=== PATIENT | female | born 1945 | race Caucasian/White ===

== ENCOUNTER → 2017-02-21 | Outpatient (CLI) | payer OTHER ==
[~2017-02-21] MED LIST: CARV25TA2 PO; CLC100 PO; INSU1.2I SQ; LEVO137T3 PO; METF-384 PO; NRV5 PO; ONDA4TAB10 SL; OXYC7.5T65 PO; TRAM-10 PO
== END | disposition home or self-care (01) ==
LOC: C.LABSPEC 17:24
PROVIDERS: ATTEND Urology
DX: N28.89 Other specified disorders of kidney and ureter (principal)

== ENCOUNTER 2017-03-04 04:59 | Inpatient (IN) | payer OTHER ==
[2017-02-26 09:37] VITALS: BMI 32.0
--- NOTE | 2017-02-26 10:27 | PAT Medication Instructions ---
Service Date Feb 26, 2017. Current Home Medication List Carvedilol (Coreg), 25 MG PO BID Insulin Glargine (Toujeo Solostar), 44 UNITS SQ BID Levothyroxine Sodium (Levothyroxine Sodium), 1 TAB PO QAM Metformin Hcl (Glucophage), 1,000 MG PO BID Tramadol (Ultram), 50 MG PO Q4H PRN for Pain Medication Instructions For Your Scheduled Surgery - Hold the following medications 48 hours prior to surgery: Metformin Hcl (Glucophage), 1,000 MG PO BID - Take the following medications the morning of surgery with a sip of water: Tramadol (Ultram), 50 MG PO Q4H PRN for Pain (okay to take up to 4 hours prior to surgery if needed) Levothyroxine Sodium (Levothyroxine Sodium), 1 TAB PO QAM Carvedilol (Coreg), 25 MG PO BID - Take the following medications as scheduled the night before surgery: Tramadol (Ultram), 50 MG PO Q4H PRN for Pain (if needed) Carvedilol (Coreg), 25 MG PO BID Insulin Glargine (Toujeo Solostar), 44 UNITS SQ BID - For Insulin Dependent Diabetic patients: Test blood sugar A.M. of surgery. - If Blood sugar greater than 150, take half of your regular dose of: Insulin Glargine (Toujeo Solostar), take 22 units - If Blood sugar less than 150, do not take any: Insulin Glargine ( Toujeo Solostar) If you have any questions please call us at [phone] or [phone] or [phone]
--- NOTE | 2017-02-26 11:06 | DIAGNOSTIC IMAGING REPORT ---
CHEST PREADMISSION(PA/LAT) CLINICAL HISTORY: Preoperative chest COMPARISON STUDY: 02/26/2017 FINDINGS: The cardiac and mediastinal contours are normal. There is no evidence of focal pulmonary consolidation. There is no evidence of failure. No pleural effusions are visualized.[ There is left basilar atelectasis/scarring. IMPRESSION: No active disease in the chest. Electronically signed by: Luoie Pan M.D. 02/26/2017 11:04 AM Dictated Date/Time: 02/26/2017 11:04 AM
[2017-02-26 11:13] LABS: BASO % 0.4 %; BASO ABS # 0.03 K/uL (0-0.2); COMPLETE YES; EOS % 2.1 %; HEMATOCRIT 41.6 % (37-47); IG% 0.5 %; LYMPH % 30.7 %; LYMPH ABS # 2.33 K/uL (1.2-3.4); MEAN CELL VOLUME 93.7 fL (80-100); MEAN CORPUSCULAR HEMOGLOBIN 31.3 pg (25-34); MEAN CORPUSCULAR HGB CONC 33.4 g/dl (32-36); MEAN PLATELET VOLUME 9.8 fL (7.4-10.4); MONO % 4.9 %; NEUT % 61.4 %; PLATELET COUNT 343 K/uL (130-400); RED BLOOD COUNT 4.44 M/uL (4.2-5.4); WHITE BLOOD COUNT 7.58 K/uL (4.8-10.8)
[2017-02-26 13:08] LABS: ALT/SGPT 25 U/L (12-78); BLOOD UREA NITROGEN 10 mg/dl (7-18); BUN/CREATININE RATIO 11.3 (10-20); CARBON DIOXIDE 29 mmol/L (21-32); CHLORIDE 102 mmol/L (98-107); CREATININE 0.85 mg/dl (0.60-1.20); GLUCOSE 208 mg/dl (70-99); POTASSIUM 4.3 mmol/L (3.5-5.1); SODIUM 137 mmol/L (136-145)
[2017-02-26 13:12] LABS: ALKALINE PHOSPHATASE 91 U/L (45-117); AST/SGOT 19 U/L (15-37)
[~2017-03-04] VITALS: Ht 167.6 cm; Wt 89.7 kg
[2017-03-04] VITALS (14 sets, daily range): BP systolic 138–179; BP diastolic 70–91; PULSE 69–100; TEMP 36.5–37.1; O2SAT 93–98; BMI 32.0
[~2017-03-04 04:59] MED LIST changes: -CLC100 PO; -NRV5 PO; -ONDA4TAB10 SL; -OXYC7.5T65 PO
[2017-03-04] MEDS ORDERED: CEFAZOLIN 3000MG IV PUSH 15 ML IV SCH (06:00)
[2017-03-04] MEDS ORDERED: LACTATED RINGER'S 1000ML 1,000 ML IV SCH (06:00)
[2017-03-04] MEDS ORDERED: MIDAZOLAM HCL 1 MG/ML 2ML VIAL ONE (06:58)
[2017-03-04] MEDS ORDERED: NEOSTIGMINE METHYLSULFATE 5 MG/5 ML SYR ONE (06:58)
[2017-03-04] MEDS ORDERED: GLYCOPYRROLATE INJ 0.2 MG/ML VIAL ONE (06:58)
[2017-03-04] MEDS ORDERED: EpHEDrine SULFATE INJ 50 MG/ML AMP ONE (06:58)
[2017-03-04] MEDS ORDERED: SUCCINYLCHOLINE CHLORIDE 20 MG/ML 10 ML VIAL IV ONE (06:58)
[2017-03-04] MEDS ORDERED: PHENYLEPHRINE HCL INJ 10 MG/ML VIAL ONE (06:58)
[2017-03-04] MEDS ORDERED: FENTANYL CITRATE INJ 50 MCG/1 ML 2 ML VIAL ONE ×2 (06:58)
[2017-03-04] MEDS ORDERED: PROPOFOL IV EMULSION 10 MG/ML 20 ML VIAL IV ONE (06:58)
[2017-03-04] MEDS ORDERED: LIDOCAINE HCL 2% 2 ML VIAL (20MG/ML) ONE (06:58)
[2017-03-04] MEDS ORDERED: DEXAMETHASONE SOD INJ 4 MG/ML VIAL ONE (06:58)
[2017-03-04] MEDS ORDERED: ONDANSETRON INJ 2 MG/ML 2 ML VIAL ONE ×2 (06:58→09:25)
--- NOTE | 2017-03-04 07:00 | History & Physical Bridge Note ---
H&P Re-Evaluation Bridge Note: I have examined the patient, reviewed the History & Physical and in the interval since the performance of the History & Physical I have noted the following changes of clinical significance: No changes noted
[2017-03-04] MEDS ORDERED: MoRPHine SULFATE 4 MG/ML 1 ML CARP\\VIAL IV PRN (07:15)
[2017-03-04] MEDS ORDERED: MEPERIDINE HCL 25 MG/ML CARP IV PRN (07:15)
[2017-03-04] MEDS ORDERED: ATROPINE SULFATE 0.1 MG/ML 5ML SYR IV PRN (07:15)
[2017-03-04] MEDS ORDERED: NALOXONE HCL 0.4 MG/1 ML VIAL/CARP IV PRN (07:15)
[2017-03-04] MEDS ORDERED: FLUMAZENIL 0.1 MG/1 ML 10 ML VIAL IV PRN (07:15)
[2017-03-04] MEDS ORDERED: PHENYLEPHRINE 100MCG/ML 5ML SYR IV PRN (07:15)
[2017-03-04] MEDS ORDERED: EpHEDrine SULFATE INJ 50 MG/ML AMP IV PRN (07:15)
[2017-03-04] MEDS ORDERED: ONDANSETRON INJ 2 MG/ML 2 ML VIAL IV PRN (07:15)
[2017-03-04] MEDS ORDERED: LABETALOL HCL IV 5 MG/ML 20ML IV PRN (07:15)
[2017-03-04] MEDS ORDERED: BUPIVACAINE 0.5 % 5 MG/1 ML MPF 30ML VIAL ONE (07:25)
[2017-03-04] MEDS ORDERED: HYDROmorphone INJ 2 MG/ML SYR/VIAL ONE (08:16)
[2017-03-04] MEDS ORDERED: ROCURONIUM BROMIDE 10 MG/ML 5 ML VIAL IV ONE (08:42)
[2017-03-04] MEDS ORDERED: LABETALOL HCL IV 5 MG/ML 20ML IV ONE (09:25)
[2017-03-04] MEDS ORDERED: FLOSEAL HEMOSTATIC MATRIX 10ML TOP ONE (09:29)
[2017-03-04] MEDS ORDERED: TISSEEL FIBRIN SEALANT 10ML TOP ONE (09:29)
[2017-03-04] MEDS ORDERED: ACETAMINOPHEN 500 MG TAB PO SCH (09:45)
[2017-03-04] MEDS ORDERED: HYDROmorphone INJ 1 MG/ML SYR IV PRN (09:45)
[2017-03-04] MEDS ORDERED: OXYCODONE/ACETAMINOPHEN 7.5-325 TAB PO PRN (09:45)
[2017-03-04] MEDS ORDERED: BACITRACIN OINT 15 GM TUBE ONE (09:49)
[2017-03-04] MEDS ORDERED: HydrALAZINE HCL 20 MG/ML VIAL ONE (10:10)
--- NOTE | 2017-03-04 10:10 | [facility] Post Operative Brief Note ---
Immediate Operative Summary Operative Date Mar 04, 2017. Pre-Operative Diagnosis Right Renal Masses x 2 Post-Operative Diagnosis Same as pre-operative Procedure(s) Performed Right Radical Laparoscopic Hand-Assisted Nephrectomy Surgeon Dr. Michael Alaniz Ornament Maker Hand Surgeon(s) NELA Salmon Estimated Blood Loss 100 ml Findings Duplicated R renal vasculature, excellent hemostasis after completion of case. Fluids (cc crystalloids) 1800 cc Specimens Specimen A: Right Kidney B: Right hilar tissue Drains Liao to gravity Anesthesia GAET + local Complication(s) None Disposition Recovery Room / PACU
[2017-03-04] MEDS: HYDROmorphone INJ 1 MG/ML SYR IV PRN ×2 (10:19→10:28)
[2017-03-04 10:24] LABS: MEAN CORPUSCULAR HEMOGLOBIN 31.4 pg (25-34); MEAN PLATELET VOLUME 9.3 fL (7.4-10.4); PLATELET COUNT 300 K/uL (130-400); RED BLOOD COUNT 4.36 M/uL (4.2-5.4); WHITE BLOOD COUNT 15.88 K/uL (4.8-10.8)
--- NOTE | 2017-03-04 10:33 | [facility] Operative Report ---
Operative Report Operative Date Mar 04, 2017. Pre-Operative Diagnosis Right Renal Masses x 2 Post-Operative Diagnosis Same as pre-operative Procedure(s) Performed Right Radical Laparoscopic Hand-Assisted Nephrectomy Surgeon Dr. Michael Alaniz Special Education Supervisor Surgeon(s) NELA Salmon Estimated Blood Loss 100 ml Findings Duplicate R renal vasculature, excellent hemostasis, majority of adrenal left in situ Fluids 1800 cc Specimens Specimen A: Right Kidney B: Right hilar tissue Drains Liao to gravity Anesthesia GAET + local Complication(s) None Disposition Recovery Room / PACU Indications Patient is a 71-year-old female but seen as an outpatient for history of right renal masses 2, both suspicious for renal cell carcinoma since the spring. On further observation and repeat imaging with MRI these confirmed to be suspicious for malignancy. She is referred for evaluation and discussion of her options. Seen the intraphytic location of her upper pole right renal mass, the presence of 2 separate renal masses in the upper pole and the presence of a duplicated collecting system as well as a normal creatinine and contralateral kidney decision was made to proceed with a right radical hand- assisted laparoscopic nephrectomy as opposed to attempting nephron sparing surgery. Please see H&P for further discussion. Preoperative consent reviewed with the patient and daughter, preoperative imaging reviewed and SCDs used for DVT prophylaxis as well as intravenous antibiotics for antibiotic prophylaxis. Description of Procedure Patient was properly identified and brought into the operative suite after identification of appropriate consent of the chart. General anesthesia with endotracheal intubation was initiated and the patient was prepped and draped in the standard fashion for this procedure, that is in a gentle right flank up position with all pressure points carefully padded and flexion of the table. Arm was placed within an arm pittman and two Kelli huggers were used for temperature control. All port sites were anesthetized with local prior to incision. A Castaneda incision was made of the right lower quadrant superior lateral to the patient's previous somewhat poorly healed appendectomy incision. This was brought down through the generous subcutaneous tissue to the fascia of the external oblique. Abdomen sharply entered under direct visualization using Metzenbaum scissors with no evidence of injury to the bowel. Incision was expanded over the surgeon's finger and some medial attachments of the omentum to the anterior abdominal wall were divided. Hand port was placed and abdomen was insufflated to 15 mmHg. The right sided inferior epigastric was ligated due to bleeding at the level of the rectus. Laparoscopy was performed demonstrating a clear surgical field with expected normal anatomy in the right upper quadrant. 2 12 mm ports were placed in the midclavicular line onto the surgeon's hand. Harmonic scalpel was used to drop the colon along the white line of Toldt the patient's right-hand side. Liver was noted to be sufficiently removed from the kidney to required no significant mobilization. The iliac vessels, IVC and duodenum were identified without difficulty. The lateral aspect of the IVC was used as a plane of dissection up toward the renal hilum over the psoas musculature. Dissection was carried out until the lower of the 2 renal arteries was appreciated. This was divided using a vascular stapler without difficulty. Renal vein was then noted as was the cephalad renal artery. These were circumscribed and also divided. The adrenal gland was divided using a staple load with the majority being left in situ and a rim being left over the kidney. No evidence of direct involvement of the adrenal gland from the patient's tumor was noted. Lateral attachments of the kidney were taken as were the posterior and cephalad attachments using the Harmonic scalpel until the kidney was free save for the inferior attachments at the level of the ureter. These were divided with a separate stapler load with excellent hemostasis. Kidney was delivered from the abdomen and sent for pathologic analysis. Attention was again turned to the retroperitoneum were excellent hemostasis was appreciated. Some excess fatty/lymphatic tissue at the level of the hilum was noted and divided using clips and the Harmonic scalpel as necessary. This is sent separately as right renal hilar tissue for pathologic analysis. After this was complete excellent hemostasis was again appreciated. Tisseel tissue sealant was placed over the course of the ureter as well as over the vessels and adrenal bed. Ports were removed as was the GelPort and excess carbon dioxide gas was removed and the abdomen. Flexion was removed from the table. 12 mm ports were closed using interrupted 0 Vicryl sutures on a UR 6 needle. Hand port was closed in 2 layers using 0 Vicryl and # [address] needle. Subcutaneous tissue was closed using 3-0 Vicryl and 4- 0 Monocryl was used at the level of the skin followed by Dermabond dressings. Anesthesia was reversed patient was transferred to the recovery room in stable condition. Follow-up care: Patient will be discharged to the floor after recovery for standard postoperative care. I attest to the content of the Intraoperative Record and any orders documented therein. Any exceptions are noted below.
--- NOTE | 2017-03-04 10:40 | Anesthesiology Progress Note ---
Anesthesia Post Op Note Date & Time Mar 04, 2017 at 10:40 Vital Signs Pain Intensity: 2 Vital Signs Past 12 Hours Date Time Temp Pulse Resp B/P (MAP) Pulse Ox O2 Delivery O2 Flow Rate FiO2 03/04/17 10:04 36.3 62 16 212/95 100 Oxymask 10 03/04/17 05:40 36.6 71 20 176/88 96 Room Air Notes Mental Status: alert / awake / arousable, participated in evaluation Pt Amnestic to Procedure: Yes Nausea / Vomiting: adequately controlled Pain: adequately controlled Airway Patency, RR, SpO2: stable & adequate BP & HR: stable & adequate, see Notes Hydration State: stable & adequate Anesthetic Complications: no major complications apparent The patient did well. She was treated with hydralazine in the PACU and is now normotensive.
[2017-03-04 10:44] LABS: BUN/CREATININE RATIO 10.4 (10-20); CALCIUM 9.5 mg/dl (8.5-10.1); CREATININE 0.88 mg/dl (0.60-1.20); POTASSIUM 3.7 mmol/L (3.5-5.1)
[2017-03-04] MEDS ORDERED: NURSING VERBAL MED ORDER ONE (10:45)
[2017-03-04 10:56] LABS: MEAN CORPUSCULAR HGB CONC 33.4 g/dl (32-36)
[2017-03-04] MEDS ORDERED: GLUCOSE 10 TABS/TUBE PO PRN (12:00)
[2017-03-04] MEDS ORDERED: ACETAMINOPHEN IV 650 MG in EMPTY BAG 0 ML IV ONE (12:00)
[2017-03-04] MEDS ORDERED: GLUCOSE 40% GEL 15 GM TUBE PO PRN (12:00)
[2017-03-04] MEDS ORDERED: GLUCAGON FOR INJ 1 MG VIAL SQ PRN (12:00)
[2017-03-04] MEDS ORDERED: DEXTROSE 50% 50 ML SYR IV PRN (12:00)
[2017-03-04] MEDS ORDERED: PHARMACY GLYCEMIC MGMT CONSULT PRN (12:11)
[2017-03-04] MEDS: INSULIN ASPART 100 UNITS/ML 3 ML PEN SC SCH ×3 (13:17→21:24)
[2017-03-04] MEDS ORDERED: INSULIN GLARGINE SOLOSTAR 100 UNITS/ML 3 ML PEN SC ONE (13:45)
--- NOTE | 2017-03-04 13:45 | Pharmacy Progress Note ---
Glycemic Control Intl Consult Date of Service Mar 04, 2017. Scope Glycemic Pharmacist consulted by Joshua LAWS on 03/04/17 for glycemic control and to write orders per [facility] inpatient glycemic control protocol Objective Weight (Kilograms): 89.700 Accuchecks BSG (last 24hrs): Test 03/04/17 05:58 03/04/17 10:06 03/04/17 10:12 03/04/17 11:51 Bedside Glucose 90 mg/dl (70-90) 115 mg/dl (70-90) 183 mg/dl (70-90) Random Glucose 121 mg/dl (70-99) Laboratory Data (last 24hrs) Test 03/04/17 10:12 Anion Gap 7.0 mmol/L BUN/Creatinine Ratio 10.4 Blood Urea Nitrogen 9 mg/dl Creatinine 0.88 mg/dl Potassium Level 3.7 mmol/L Sodium Level 139 mmol/L White Blood Count 15.88 K/uL Recent Pertinent Medications Outpatient Anti-diabetic Regimen: * Toujeo {insulin glargine U-300} 44 units SQ BID * Metformin 1,000 mg PO BIDM Risk Factors for Insulin Resistance: * Steroids * Recent Surgery * Diet Assessment & Plan ASSESSMENT: * 71yo T2DM female with unknown degree of outpatient control. No A1c listed in chart. Will order per protocol for tomorrow with AM labs * Pt is maintained on metformin + basal insulin {Toujeo, insulin glargine U-300} * Toujeo is a non-stock/non-formulary medication. Protocol for pharmacy to convert ordered doses of Toujeo to Lantus on a 1:1 unit conversion, except for the initial first dose of Lantus. The recommended initial Lantus dose should be 80% of the ordered Toujeo dose that is being converted on admission. All subsequent doses will be 1:1 dosing conversion. * Pt did not take her insulin prior to surgery this morning. * Will make up 1/2 of missed dose this morning and then resume outpatient dosing this evening * Weight based/high insulin resistance/stress CF/CR PLAN FOR INPATIENT GLYCEMIC CONTROL: * Oral Agents * Holding outpatient oral diabetes medications * Resume metformin POD #1 after renal function and PO intake assessed * Basal insulin * Lantus 22 units SQ x 1 dose NOW, then resume outpatient dosing of 44 units SQ BID * Bolus insulin * NovoLog per scale ACHS or Q6hrs while NPO * Goal Range: Low 110 mg/dL - High 140 mg/dL * Correction Factor: 20 mg/dL/unit * Nutritional / Prandial insulin per carb ratio of 1 unit per 6 grams CHO consumed * Please note that the plan above was derived based on current level of insulin resistance and hospital stress. These recommendations are appropriate for inpatient admission only. Plan of care upon discharge will need to be reassessed to avoid potential outpatient hypo/hyperglycemia. Thank you.
[2017-03-04] MEDS: CEFAZOLIN IV 2,000 MG in SYRINGE 0 ML IV SCH ×2 (15:49→23:36)
--- NOTE | 2017-03-04 16:25 | Progress Note ---
Progress Note Date of Service Mar 04, 2017. Progress Note PM rounds Patient resting comfortably in bed, somnolent, denies pain, nikole sips of clears, no emesis. NAD Arousable, conversant. S1S2 Good respiratory excursion Soft, obese, mild ecchymosis around incisions, otherwise c/d/i, mild tenderness at hand port site A/P 71 yo female POD#0 s/p R HALN. Doing well. OK for OOBTC tonight if she rouses more. Otherwise increase diet and activity in AM. Intraop findings reviewed. Postop labs reviewed as below. Last 24 Hours Test 03/04/17 05:58 03/04/17 10:06 03/04/17 10:12 03/04/17 11:51 Bedside Glucose 90 mg/dl 115 mg/dl 183 mg/dl White Blood Count 15.88 K/uL Red Blood Count 4.36 M/uL Hemoglobin 13.7 g/dL Hematocrit 41.0 % Mean Corpuscular Volume 94.0 fL Mean Corpuscular Hemoglobin 31.4 pg Mean Corpuscular Hemoglobin Concent 33.4 g/dl RDW Standard Deviation 44.0 fL RDW Coefficient of Variation 12.8 % Platelet Count 300 K/uL Mean Platelet Volume 9.3 fL Sodium Level 139 mmol/L Potassium Level 3.7 mmol/L Chloride Level 103 mmol/L Carbon Dioxide Level 29 mmol/L Anion Gap 7.0 mmol/L Blood Urea Nitrogen 9 mg/dl Creatinine 0.88 mg/dl Est Creatinine Clear Calc Drug Dose 65.2 ml/min Estimated GFR () 76.1 Estimated GFR (Non- 65.6 BUN/Creatinine Ratio 10.4 Random Glucose 121 mg/dl Calcium Level 9.5 mg/dl
[2017-03-04] MEDS: ONDANSETRON INJ 2 MG/ML 2 ML VIAL IV PRN (17:00)
[2017-03-04] MEDS: LACTATED RINGER'S 1000ML 1,000 ML IV SCH (18:03)
[2017-03-04] MEDS: ACETAMINOPHEN 500 MG TAB PO SCH ×2 (18:04→23:37)
[2017-03-04] MEDS: METOCLOPRAMIDE HCL INJ 5 MG/ML 2 ML VIAL IV PRN (19:11)
--- NOTE | 2017-03-04 19:27 | Medical Consult ---
Consultation Date of Consultation: Mar 04, 2017. Attending Physician: Michael Alaniz MD, Urology Reason for Consultation: Elevated BP post-op History of Present Illness 71 y/o F who was admitted earlier today s/p R nephrectomy. Called to evaluate pt for elevated BP. Pt states she is sore in her lower abd related to her surgical sites but otherwise has no concerns. She was given pain medication and is awaiting it to take effect. She did not eat much due to pain. Pt's pre-op instructions request that she take her coreg this AM. Pt states she did not do this. She cannot tell me why. Pt denies fever, SOB, chest pain, n/v/c/d, LE pain or swelling. Past Medical/Surgical History HTN DM Hypothyroid Renal mass Vit D deficiency Social History Smoking Status: Never Smoker Alcohol Use: none Drug Use: none Allergies Coded Allergies: No Known Allergies (Unverified , 03/04/17) Current Inpatient Medications Current Inpatient Medications Medications (Trade) Dose Ordered Sig/Bradley Route Start Time Stop Time Status Last Admin Dose Admin Lactated Ringer's 1,000 ml @ 15 mls/hr Q24H IV 03/04/17 06:00 03/05/17 05:59 03/04/17 05:55 15 MLS/HR Miscellaneous Information (Consult Glycemic Management Pharmacy) 1 ea UD PRN N/A 03/04/17 12:11 04/03/17 12:10 Carvedilol (Coreg Tab) 25 mg BID PO 03/04/17 21:00 04/03/17 20:59 Levothyroxine Sodium (Synthroid Tab) 137 mcg DAILYBB PO 03/05/17 06:00 04/04/17 05:59 Insulin Glargine (Lantus Solostar Pen) 44 units BID SC 03/04/17 21:00 04/03/17 20:59 Cefazolin Sodium 2000 mg/Syringe 10 ml @ 2.5 mls/min Q8H IV 03/04/17 16:00 03/05/17 15:59 03/04/17 15:49 2.5 MLS/MIN Docusate Sodium (coLACE CAP) 100 mg BID PO 03/04/17 21:00 04/03/17 20:59 Heparin Sodium (Porcine) (Heparin Sq 5000 Unit/0.5ml) 5,000 unit Q12H SQ 03/05/17 08:00 04/04/17 07:59 UNV Hydromorphone HCl (Dilaudid Inj) 1 mg Q2H PRN IV 03/04/17 09:45 03/18/17 09:44 Lactated Ringer's 1,000 ml @ 110 mls/hr Q9H6M IV 03/04/17 18:00 04/03/17 17:59 03/04/17 18:03 110 MLS/HR Ondansetron HCl (Zofran Inj) 4 mg Q6H PRN IV 03/04/17 09:45 04/03/17 09:44 03/04/17 17:00 4 MG Oxycodone/ Acetaminophen (Percocet 7.5-325MG Tab) Hold Tylenol if given Q4H PRN PO 03/04/17 09:45 03/18/17 09:44 Acetaminophen (Tylenol Tab) 500 mg Q6 PO 03/04/17 18:00 04/03/17 17:59 03/04/17 18:04 500 MG Insulin Aspart (novoLOG ASPART) SLIDING SCALE ACHS SC 03/04/17 12:00 04/03/17 11:59 03/04/17 18:08 2 UNITS Glucose (Glucose 40% Gel) 15-30 GRAMS 15 GRAMS... UD PRN PO 03/04/17 12:00 04/03/17 11:59 Glucose (Glucose Chew Tab) 4-8 Tablets 4 Tabl... UD PRN PO 03/04/17 12:00 04/03/17 11:59 Dextrose (Dextrose 50% 50ML Syringe) 25-50ML OF 50% DW IV FOR... UD PRN IV 03/04/17 12:00 04/03/17 11:59 Glucagon (Glucagon Inj) 1 mg UD PRN SQ 03/04/17 12:00 04/03/17 11:59 Metoclopramide HCl (Reglan Inj) 10 mg Q6H PRN IV 03/04/17 18:45 04/03/17 18:44 03/04/17 19:11 10 MG Review of Systems Pertinent positives and negatives reviewed in HPI--all others negative Physical Exam Date Time Temp Pulse Resp B/P (MAP) Pulse Ox O2 Delivery O2 Flow Rate FiO2 03/04/17 18:59 36.7 92 18 170/79 (109) 95 Nasal Cannula 1.0 03/04/17 15:13 36.7 80 18 161/84 (109) 94 Nasal Cannula 1.0 03/04/17 14:08 36.5 85 16 138/70 (92) 96 2.0 03/04/17 13:01 79 16 147/75 (99) 96 2.0 03/04/17 12:05 69 17 154/70 (98) 94 Nasal Cannula 2.0 03/04/17 12:00 94 Nasal Cannula 2.0 03/04/17 11:35 69 16 155/74 (101) 95 2.0 03/04/17 11:31 94 Nasal Cannula 2.0 03/04/17 11:05 36.6 70 16 150/70 (96) 94 Nasal Cannula 2.0 03/04/17 10:54 36.6 03/04/17 10:52 73 16 96 03/04/17 10:52 73 16 03/04/17 10:51 143/66 03/04/17 10:47 71 14 97 03/04/17 10:47 71 14 03/04/17 10:46 145/71 03/04/17 10:42 72 14 96 03/04/17 10:42 71 14 03/04/17 10:41 145/71 03/04/17 10:39 75 16 03/04/17 10:39 75 16 97 03/04/17 10:36 162/72 03/04/17 10:34 74 17 03/04/17 10:34 75 17 99 03/04/17 10:31 163/74 03/04/17 10:29 68 16 03/04/17 10:29 68 16 100 03/04/17 10:26 183/83 03/04/17 10:25 191/83 03/04/17 10:24 65 13 100 03/04/17 10:24 64 13 03/04/17 10:21 201/03/04/17 10:19 62 17 03/04/17 10:19 62 17 100 03/04/17 10:16 218/98 03/04/17 10:14 61 15 03/04/17 10:14 61 15 100 03/04/17 10:11 201/03/04/17 10:09 64 21 03/04/17 10:09 66 21 100 03/04/17 10:06 213/95 03/04/17 10:05 212/92 03/04/17 10:04 64 16 03/04/17 10:04 64 16 100 03/04/17 10:04 36.3 62 16 212/95 100 Oxymask 10 03/04/17 05:40 36.6 71 20 176/88 96 Room Air General Appearance: WD/WN, no apparent distress Head: normocephalic, atraumatic Eyes: normal inspection, EOMI Cardiovascular: regular rate, rhythm, no edema Abdomen/GI: non tender, soft Extremities/Musculoskelatal: no calf tenderness, no pedal edema Neurologic/Psych: alert, normal mood/affect, oriented x 3 Skin: normal color, warm/dry Laboratory Results Last 24 Hours Test 03/04/17 05:58 03/04/17 10:06 03/04/17 10:12 03/04/17 11:51 Bedside Glucose 90 mg/dl 115 mg/dl 183 mg/dl White Blood Count 15.88 K/uL Red Blood Count 4.36 M/uL Hemoglobin 13.7 g/dL Hematocrit 41.0 % Mean Corpuscular Volume 94.0 fL Mean Corpuscular Hemoglobin 31.4 pg Mean Corpuscular Hemoglobin Concent 33.4 g/dl RDW Standard Deviation 44.0 fL RDW Coefficient of Variation 12.8 % Platelet Count 300 K/uL Mean Platelet Volume 9.3 fL Sodium Level 139 mmol/L Potassium Level 3.7 mmol/L Chloride Level 103 mmol/L Carbon Dioxide Level 29 mmol/L Anion Gap 7.0 mmol/L Blood Urea Nitrogen 9 mg/dl Creatinine 0.88 mg/dl Est Creatinine Clear Calc Drug Dose 65.2 ml/min Estimated GFR () 76.1 Estimated GFR (Non- 65.6 BUN/Creatinine Ratio 10.4 Random Glucose 121 mg/dl Calcium Level 9.5 mg/dl Test 03/04/17 16:53 Bedside Glucose 171 mg/dl Assessment & Plan Elevated BP: pt did not take her AM coreg as instructed to do as part of her pre -op instructions Nursing advised to give HS dose now and monitor Hx of HTN DM: continue home meds Hypothyroid: continue home meds R renal mass: s/p R nephrectomy As per renal
[2017-03-04] MEDS: CARVEDILOL 25 MG TAB PO SCH (20:07)
[2017-03-04] MEDS: DOCUSATE SODIUM 100 MG CAP PO SCH (20:07)
[2017-03-04] MEDS ORDERED: INSULIN GLARGINE SOLOSTAR 100 UNITS/ML 3 ML PEN SC SCH (21:00)
[2017-03-05] VITALS (9 sets, daily range): BP systolic 136–207; BP diastolic 63–80; PULSE 71–89; TEMP 36.6–37; O2SAT 92–98; BMI 31.9
[2017-03-05] MEDS: LACTATED RINGER'S 1000ML 1,000 ML IV SCH ×2 (03:10→12:12)
[2017-03-05] MEDS: ACETAMINOPHEN 500 MG TAB PO SCH ×3 (05:28→18:38)
[2017-03-05] MEDS: LEVOTHYROXINE 137 MCG TAB PO SCH (05:28)
[2017-03-05 05:56] LABS: BASO % 0.1 %; BASO ABS # 0.01 K/uL (0-0.2); COMPLETE YES; HEMATOCRIT 39.5 % (37-47); IG% 0.3 %; LYMPH % 21.2 %; LYMPH ABS # 2.62 K/uL (1.2-3.4); MEAN CELL VOLUME 93.8 fL (80-100); MEAN CORPUSCULAR HEMOGLOBIN 31.1 pg (25-34); MEAN CORPUSCULAR HGB CONC 33.2 g/dl (32-36); MONO % 10.1 %; NEUT % 68.3 %; PLATELET COUNT 324 K/uL (130-400); RED BLOOD COUNT 4.21 M/uL (4.2-5.4); WHITE BLOOD COUNT 12.34 K/uL (4.8-10.8)
[2017-03-05 06:05] LABS: PROTHROMBIN TIME (PATIENT) 10.2 SECONDS (9.0-12.0)
[2017-03-05 06:33] LABS: BUN/CREATININE RATIO 10.2 (10-20); CALCIUM 8.9 mg/dl (8.5-10.1); CREATININE 1.14 mg/dl (0.60-1.20); POTASSIUM 3.7 mmol/L (3.5-5.1)
[2017-03-05] MEDS: HEPARIN SOD 5000 UNIT/0.5 ML CARP SQ SCH ×2 (08:14→20:31)
--- NOTE | 2017-03-05 08:22 | Progress Note ---
Subjective Date of Service: Mar 05, 2017. Subjective Pt evaluation today including: conversation w/ patient, physical exam, chart review, lab review, review of inpatient medication list Pain: Incisional, appropriate and controlled PO Intake: Demarcus clears, no emesis Voiding: guillen catheter in place (urine clear) 71 yo female POD#1 s/p R HALN. Her HTN and nausea OVN are noted, hospitalist consult appreciated. She notes OOB yesterday, no ambulation today yet. Labwork reviewed - stable Hb, mild increase in Cr. Review of Systems Constitutional: No fever, No chills Eyes: No worsening of vision ENT: No hearing loss Respiratory: No sputum, No shortness of breath Cardiac: No chest pain Abdomen: + pain, No nausea, No vomiting Female : No hematuria Neurologic: No memory loss, No paralysis Psychiatric: No depression symptoms Skin: No new/changing skin lesions, No bleeding Objective Vital Signs Date Time Temp Pulse Resp B/P (MAP) Pulse Ox O2 Delivery O2 Flow Rate FiO2 03/05/17 07:25 36.8 83 20 136/65 (88) 98 Nasal Cannula 1.0 03/05/17 03:34 36.7 85 16 152/71 (98) 92 Nasal Cannula 2.0 03/04/17 23:40 Nasal Cannula 1.0 03/04/17 23:15 37.1 94 16 161/76 (104) 98 Nasal Cannula 2.0 03/04/17 22:05 97 179/91 (120) 93 Room Air 03/04/17 20:06 100 177/83 (114) 03/04/17 18:59 36.7 92 18 170/79 (109) 95 Nasal Cannula 1.0 03/04/17 15:40 94 Nasal Cannula 1.0 03/04/17 15:13 36.7 80 18 161/84 (109) 94 Nasal Cannula 1.0 03/04/17 14:08 36.5 85 16 138/70 (92) 96 2.0 03/04/17 13:01 79 16 147/75 (99) 96 2.0 03/04/17 12:05 69 17 154/70 (98) 94 Nasal Cannula 2.0 03/04/17 12:00 94 Nasal Cannula 2.0 03/04/17 11:35 69 16 155/74 (101) 95 2.0 03/04/17 11:31 94 Nasal Cannula 2.0 03/04/17 11:05 36.6 70 16 150/70 (96) 94 Nasal Cannula 2.0 03/04/17 10:54 36.6 03/04/17 10:52 73 16 96 03/04/17 10:52 73 16 03/04/17 10:51 143/66 03/04/17 10:47 71 14 97 03/04/17 10:47 71 14 03/04/17 10:46 145/71 03/04/17 10:42 72 14 96 03/04/17 10:42 71 14 03/04/17 10:41 145/71 03/04/17 10:39 75 16 03/04/17 10:39 75 16 97 03/04/17 10:36 162/72 03/04/17 10:34 74 17 03/04/17 10:34 75 17 99 03/04/17 10:31 163/74 03/04/17 10:29 68 16 03/04/17 10:29 68 16 100 03/04/17 10:26 183/83 03/04/17 10:25 191/83 03/04/17 10:24 65 13 100 03/04/17 10:24 64 13 03/04/17 10:21 201/91 03/04/17 10:19 62 17 03/04/17 10:19 62 17 100 03/04/17 10:16 218/98 03/04/17 10:14 61 15 03/04/17 10:14 61 15 100 03/04/17 10:11 201/92 03/04/17 10:09 64 21 03/04/17 10:09 66 21 100 03/04/17 10:06 213/95 03/04/17 10:05 212/92 03/04/17 10:04 64 16 03/04/17 10:04 64 16 100 03/04/17 10:04 36.3 62 16 212/95 100 Oxymask 10 Physical Exam General Appearance: no apparent distress, + obese ENT: normal ENT inspection, hearing grossly normal Neck: supple, no adenopathy Respiratory/Chest: no respiratory distress, no accessory muscle use Cardiovascular: no JVD Abdomen: non tender, soft Extremities: non-tender Neurologic/Psychiatric: alert, oriented x 3 Skin: normal color Laboratory Results Last 24 Hours Test 03/04/17 10:06 03/04/17 10:12 03/04/17 11:51 03/04/17 16:53 Bedside Glucose 115 mg/dl 183 mg/dl 171 mg/dl White Blood Count 15.88 K/uL Red Blood Count 4.36 M/uL Hemoglobin 13.7 g/dL Hematocrit 41.0 % Mean Corpuscular Volume 94.0 fL Mean Corpuscular Hemoglobin 31.4 pg Mean Corpuscular Hemoglobin Concent 33.4 g/dl RDW Standard Deviation 44.0 fL RDW Coefficient of Variation 12.8 % Platelet Count 300 K/uL Mean Platelet Volume 9.3 fL Sodium Level 139 mmol/L Potassium Level 3.7 mmol/L Chloride Level 103 mmol/L Carbon Dioxide Level 29 mmol/L Anion Gap 7.0 mmol/L Blood Urea Nitrogen 9 mg/dl Creatinine 0.88 mg/dl Est Creatinine Clear Calc Drug Dose 65.2 ml/min Estimated GFR () 76.1 Estimated GFR (Non- 65.6 BUN/Creatinine Ratio 10.4 Random Glucose 121 mg/dl Calcium Level 9.5 mg/dl Test 03/04/17 20:23 03/05/17 05:23 Bedside Glucose 216 mg/dl White Blood Count 12.34 K/uL Red Blood Count 4.21 M/uL Hemoglobin 13.1 g/dL Hematocrit 39.5 % Mean Corpuscular Volume 93.8 fL Mean Corpuscular Hemoglobin 31.1 pg Mean Corpuscular Hemoglobin Concent 33.2 g/dl Platelet Count 324 K/uL Mean Platelet Volume 10.0 fL Neutrophils (%) (Auto) 68.3 % Lymphocytes (%) (Auto) 21.2 % Monocytes (%) (Auto) 10.1 % Eosinophils (%) (Auto) 0.0 % Basophils (%) (Auto) 0.1 % Neutrophils # (Auto) 8.42 K/uL Lymphocytes # (Auto) 2.62 K/uL Monocytes # (Auto) 1.25 K/uL Eosinophils # (Auto) 0.00 K/uL Basophils # (Auto) 0.01 K/uL RDW Standard Deviation 44.1 fL RDW Coefficient of Variation 12.8 % Immature Granulocyte % (Auto) 0.3 % Immature Granulocyte # (Auto) 0.04 K/uL Prothrombin Time 10.2 SECONDS Prothromb Time International Ratio 1.0 Sodium Level 134 mmol/L Potassium Level 3.7 mmol/L Chloride Level 100 mmol/L Carbon Dioxide Level 30 mmol/L Anion Gap 4.0 mmol/L Blood Urea Nitrogen 12 mg/dl Creatinine 1.14 mg/dl Est Creatinine Clear Calc Drug Dose 50.3 ml/min Estimated GFR () 55.6 Estimated GFR (Non- 48.0 BUN/Creatinine Ratio 10.2 Random Glucose 95 mg/dl Calcium Level 8.9 mg/dl Assessment and Plan A/P 71 yo female POD#1 s/p R HALN. Doing well. Increase diet and activity. TOV. PT consult. Anticipate discharge tomorrow. Discharge planning: home
[2017-03-05] MEDS ORDERED: CLC100 PO (08:50)
[2017-03-05] MEDS ORDERED: OXYC7.5T65 PO (08:50)
[2017-03-05] MEDS: CEFAZOLIN IV 2,000 MG in SYRINGE 0 ML IV SCH (08:52)
[2017-03-05 09:00] LABS: ESTIMATED AVERAGE GLUCOSE 197 mg/dl; HA1C FLAG Normal (Normal)
[2017-03-05] MEDS ORDERED: INSULIN GLARGINE SOLOSTAR 100 UNITS/ML 3 ML PEN SC SCH ×2 (09:00→21:00)
[2017-03-05] MEDS: CARVEDILOL 25 MG TAB PO SCH ×2 (09:06→20:26)
[2017-03-05] MEDS: DOCUSATE SODIUM 100 MG CAP PO SCH ×2 (09:06→20:26)
[2017-03-05] MEDS: INSULIN ASPART 100 UNITS/ML 3 ML PEN SC SCH ×4 (09:18→21:00)
--- NOTE | 2017-03-05 10:57 | Anesthesiology Progress Note ---
Anesthesia Post Op Note Date & Time Mar 05, 2017 at 10:57 Vital Signs Pain Intensity: 5.0 Vital Signs Past 12 Hours Date Time Temp Pulse Resp B/P (MAP) Pulse Ox O2 Delivery O2 Flow Rate FiO2 03/05/17 10:33 98 Nasal Cannula 1.0 03/05/17 07:30 Nasal Cannula 1.0 03/05/17 07:25 36.8 83 20 136/65 (88) 98 Nasal Cannula 1.0 03/05/17 03:34 36.7 85 16 152/71 (98) 92 Nasal Cannula 2.0 03/04/17 23:40 Nasal Cannula 1.0 03/04/17 23:15 37.1 94 16 161/76 (104) 98 Nasal Cannula 2.0 Notes Mental Status: alert / awake / arousable, participated in evaluation Pt Amnestic to Procedure: Yes Nausea / Vomiting: adequately controlled Pain: adequately controlled Airway Patency, RR, SpO2: stable & adequate BP & HR: stable & adequate Hydration State: stable & adequate Anesthetic Complications: no major complications apparent
[2017-03-05] MEDS ORDERED: NURSING VERBAL MED ORDER ONE (12:45)
--- NOTE | 2017-03-05 14:24 | Pharmacy Progress Note ---
Glycemic Control Progress Note Date of Service Mar 05, 2017. Scope Glycemic Pharmacist consulted for glycemic control to write orders per [facility] inpatient glycemic control protocol. Objective Accuchecks BSG (last 24hrs): Test 03/04/17 16:53 03/04/17 20:23 03/05/17 05:23 03/05/17 09:12 Bedside Glucose 171 mg/dl (70-90) 216 mg/dl (70-90) 90 mg/dl (70-90) Random Glucose 95 mg/dl (70-99) HbA1c: Test 03/05/17 05:23 Hemoglobin A1c 8.5 % (4.5-5.6) H Recent Pertinent Medications Outpatient Anti-diabetic Regimen: * Toujeo {insulin glargine U-300} 44 units SQ BID * Metformin 1,000 mg PO BIDM Risk Factors for Insulin Resistance: * Steroids * Recent Surgery * Diet Assessment & Plan ASSESSMENT: * 71yo T2DM near adequate degree of outpatient control based on recent A1c * Pt is maintained on metformin + basal insulin {Toujeo, insulin glargine U-300} * Toujeo is a non-stock/non-formulary medication. Protocol for pharmacy to convert ordered doses of Toujeo to Lantus on a 1:1 unit conversion, except for the initial first dose of Lantus. The recommended initial Lantus dose should be 80% of the ordered Toujeo dose that is being converted on admission. All subsequent doses will be 1:1 dosing conversion. * Pt was ordered her outpatient dosing of basal insulin 44 units SQ BID * Pt had a LOW BSG this morning, therefore, basal insulin was reduced from 44 to 35 units * Unfortunately, she had another low prior to lunch. Will further reduce basal insulin and titrate based on BSG trends. * Likely, her outpatient basal insulin is covering some prandial needs which is causing LOWs in the hospital where diet is reduced/controlled as compared to outpatient. * Continue weight based/high insulin resistance/stress CF/CR PLAN FOR INPATIENT GLYCEMIC CONTROL: * Oral Agents * Holding outpatient oral diabetes medications * Resume metformin POD #2 after hypo resolved * Basal insulin * Lantus 22 units SQ BID * Pt received 35 units SQ this morning, therefore, will give Lantus 9 units this evening if BSG > 150 * Bolus insulin * NovoLog per scale ACHS or Q6hrs while NPO * Goal Range: Low 110 mg/dL - High 140 mg/dL * Correction Factor: 20 mg/dL/unit * Nutritional / Prandial insulin per carb ratio of 1 unit per 6 grams CHO consumed * Please note that the plan above was derived based on current level of insulin resistance and hospital stress. These recommendations are appropriate for inpatient admission only. Plan of care upon discharge will need to be reassessed to avoid potential outpatient hypo/hyperglycemia. Thank you.
[2017-03-05] MEDS ORDERED: HydrALAZINE HCL 20 MG/ML VIAL IV. PRN (20:30)
[2017-03-05] MEDS ORDERED: HydrALAZINE HCL 20 MG/ML VIAL ONE (20:33)
[2017-03-05] MEDS ORDERED: OXYCODONE HCL IR 5 MG TAB (IMMEDIATE RELEASE) PO STA (20:35)
[2017-03-05] MEDS: METOCLOPRAMIDE HCL INJ 5 MG/ML 2 ML VIAL IV PRN (20:36)
--- NOTE | 2017-03-05 23:48 | Hospitalist Progress Note ---
Hospitalist Progress Note Date of Service Mar 05, 2017. Subjective Pt evaluation today including: conversation w/ patient Voiding: no voiding problems Pt reports some pain in abdomen, some nausea after dinner this evening, but denies LEIVA/CP/SOB/Numbness/Tingling/Weakness/Vision changes. BP at the megan eI saw her was quite elevated at 207 systolic. I ordered IV hydralazine and she was due for her home COreg. Pt reports her BP is never this high usually. It was high preoperatively, as well as post-operatively. All Other Systems: Reviewed and Negative Objective Vital Signs Date Time Temp Pulse Resp B/P (MAP) Pulse Ox O2 Delivery O2 Flow Rate FiO2 03/05/17 22:19 147/72 (97) 03/05/17 20:24 79 207/80 (122) 03/05/17 15:30 Room Air 03/05/17 15:00 36.8 74 18 173/73 (106) 93 Room Air 03/05/17 12:00 72 95 03/05/17 11:39 36.6 71 18 149/63 (91) 94 Room Air 03/05/17 10:33 98 Nasal Cannula 1.0 03/05/17 07:30 Nasal Cannula 1.0 03/05/17 07:25 36.8 83 20 136/65 (88) 98 Nasal Cannula 1.0 03/05/17 03:34 36.7 85 16 152/71 (98) 92 Nasal Cannula 2.0 03/04/17 23:40 Nasal Cannula 1.0 Physical Exam General Appearance: WD/WN, no apparent distress, + obese Eyes: normal inspection, sclerae normal ENT: + pertinent finding (hard of hearing) Neck: trachea midline Respiratory/Chest: lungs clear, normal breath sounds, no respiratory distress, no accessory muscle use Cardiovascular: regular rate, rhythm, no edema, no gallop, + systolic murmur (2 /6 at RUSB) Abdomen: normal bowel sounds, soft, + pertinent finding (mild +TTP around incision sites right side abdomen, no guarding or rebound) Extremities: non-tender, normal inspection, no pedal edema, no calf tenderness Neurologic/Psychiatric: alert, normal mood/affect, oriented x 3 Skin: normal color, warm/dry, no rash Laboratory Results Last 24 Hours Test 03/05/17 05:23 03/05/17 07:59 03/05/17 09:12 03/05/17 12:10 White Blood Count 12.34 K/uL Red Blood Count 4.21 M/uL Hemoglobin 13.1 g/dL Hematocrit 39.5 % Mean Corpuscular Volume 93.8 fL Mean Corpuscular Hemoglobin 31.1 pg Mean Corpuscular Hemoglobin Concent 33.2 g/dl Platelet Count 324 K/uL Mean Platelet Volume 10.0 fL Neutrophils (%) (Auto) 68.3 % Lymphocytes (%) (Auto) 21.2 % Monocytes (%) (Auto) 10.1 % Eosinophils (%) (Auto) 0.0 % Basophils (%) (Auto) 0.1 % Neutrophils # (Auto) 8.42 K/uL Lymphocytes # (Auto) 2.62 K/uL Monocytes # (Auto) 1.25 K/uL Eosinophils # (Auto) 0.00 K/uL Basophils # (Auto) 0.01 K/uL RDW Standard Deviation 44.1 fL RDW Coefficient of Variation 12.8 % Immature Granulocyte % (Auto) 0.3 % Immature Granulocyte # (Auto) 0.04 K/uL Prothrombin Time 10.2 SECONDS Prothromb Time International Ratio 1.0 Sodium Level 134 mmol/L Potassium Level 3.7 mmol/L Chloride Level 100 mmol/L Carbon Dioxide Level 30 mmol/L Anion Gap 4.0 mmol/L Blood Urea Nitrogen 12 mg/dl Creatinine 1.14 mg/dl Est Creatinine Clear Calc Drug Dose 50.3 ml/min Estimated GFR () 55.6 Estimated GFR (Non- 48.0 BUN/Creatinine Ratio 10.2 Random Glucose 95 mg/dl Estimated Average Glucose 197 mg/dl Hemoglobin A1c 8.5 % Calcium Level 8.9 mg/dl Bedside Glucose 66 mg/dl 90 mg/dl 65 mg/dl Test 03/05/17 12:25 03/05/17 13:06 03/05/17 16:57 03/05/17 21:10 Bedside Glucose 69 mg/dl 157 mg/dl 137 mg/dl 131 mg/dl Assessment and Plan Pt is a 71 yo female with a h/o HTN, hypothyroidism, Vit D deficiency, DMII, obesity, and right renal masses, here s/p Right nephrectomy. Medical consultation placed for elevated BPs. Essential HTN with accelerated HTN-->missed her dose of Coreg the AM of surgery , but was restarted, BPs were improved, now increased again. Could be secondary to pain, possibly nephrectomy? 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
[2017-03-06] MEDS: LEVOTHYROXINE 137 MCG TAB PO SCH (05:50)
[2017-03-06] MEDS: ACETAMINOPHEN 500 MG TAB PO SCH ×3 (05:50→12:00)
[2017-03-06 06:10] LABS: BASO % 0.2 %; BASO ABS # 0.02 K/uL (0-0.2); COMPLETE YES; EOS % 0.4 %; HEMATOCRIT 37.9 % (37-47); IG% 0.4 %; LYMPH ABS # 3.85 K/uL (1.2-3.4); MEAN CELL VOLUME 95.2 fL (80-100); MEAN CORPUSCULAR HEMOGLOBIN 31.2 pg (25-34); MEAN CORPUSCULAR HGB CONC 32.7 g/dl (32-36); MEAN PLATELET VOLUME 9.7 fL (7.4-10.4); MONO % 10.5 %; NEUT % 55.5 %; PLATELET COUNT 299 K/uL (130-400); RED BLOOD COUNT 3.98 M/uL (4.2-5.4); WHITE BLOOD COUNT 11.66 K/uL (4.8-10.8)
[2017-03-06 06:39] LABS: BUN/CREATININE RATIO 11.4 (10-20); CALCIUM 9.6 mg/dl (8.5-10.1); CREATININE 1.2 mg/dl (0.60-1.20); POTASSIUM 3.9 mmol/L (3.5-5.1)
--- NOTE | 2017-03-06 07:33 | Discharge Instructions ---
Discharge Instructions Date of Service Mar 05, 2017. Admission Reason for Admission: Right Renal Mass Discharge Discharge Diagnosis / Problem: Right renal mass Discharge Goals Goal(s): Decrease discomfort, Improve disease control, Improve nutritional status, Therapeutic intervention Activity Recommendations Activity Limitations: per Instructions/Follow-up section Shower/Bathe: tomorrow 1. Do not lift >15lbs x 6 weeks. 2. No heavy exercise x 6 weeks. You may engage in light activity such as walking and stairs as tolerated. 3. Do not drive x [address] while taking narcotics. 4. Follow-up as scheduled. Please call our office at [phone] if you need to reschedule for any reason. 5. Do not take tramadol in addition to Percocet. You may take one or the other for pain. . . Current Hospital Diet Hospital Diet(s): Full Liquid Diet, Diabetes Type 2 Diet Discharge Diet Recommended Diet: Diabetes Type 2 Diet Procedures Procedures Performed: Right Radical Laparoscopic Hand-Assisted Nephrectomy Pending Studies Studies pending at discharge: yes (renal mass) List of pending studies: renal mass Laboratory Results Hemoglobin A1c Test 03/05/17 05:23 Range/Units Medical Emergencies . Who to Call and When: Medical Emergencies: If at any time you feel your situation is an emergency, please call 911 immediately. . Non-Emergent Contact Non-Emergency issues call your: Urologist Call Non-Emergent contact if: temperature is above 101.5, your pain is not controlled, your pain is worsening, your pain is unusual for you, your pain is concerning you, you have any medication questions . . "Provider Documentation" section prepared by Stephanie Falcon. . VTE Core Measure Inpt VTE Proph given/why not?: Unfractionated heparin SQ, SCD's [place] Drug Monitoring Program Search Results: patient reviewed within database, see additional documentation Drug Monitoring Findings: Pt receiving chronic Rx for tramadol. Last received in November. Will hold tramadol, and provide Percocet Rx for pain in the immediate post-op period.
--- NOTE | 2017-03-06 07:33 | Progress Note ---
Subjective Date of Service: Mar 06, 2017. (Stephanie Falcon CRNP) Subjective Pt evaluation today including: conversation w/ patient, chart review, lab review Voiding: no voiding problems 71 yo female s/p right HALN. Pt reports some incisional pain this morning, but otherwise is feeling well. Denies n/v. Tolerating mechanical soft diet. + flatus. Denies BM. Denies dysuria or hematuria. Labs stable. I&Os acceptable. (Stephanie Falcon CRNP) Review of Systems Constitutional: No fever, No chills Respiratory: No shortness of breath Cardiac: No chest pain Abdomen: No pain, No nausea, No vomiting Female : No dysuria, No hematuria Heme: No abnormal bleeding/bruising (Stephanie Falcon CRNP) Objective Vital Signs Date Time Temp Pulse Resp B/P (MAP) Pulse Ox O2 Delivery O2 Flow Rate FiO2 03/05/17 23:20 Room Air 03/05/17 23:10 37.0 89 16 154/78 (103) 92 Room Air 03/05/17 22:19 147/72 (97) 03/05/17 20:24 79 207/80 (122) 03/05/17 15:30 Room Air 03/05/17 15:00 36.8 74 18 173/73 (106) 93 Room Air 03/05/17 12:00 72 95 03/05/17 11:39 36.6 71 18 149/63 (91) 94 Room Air 03/05/17 10:33 98 Nasal Cannula 1.0 03/05/17 07:30 Nasal Cannula 1.0 (Stephanie Falcon CRNP) Physical Exam General Appearance: no apparent distress, + obese Eyes: normal inspection ENT: hearing grossly normal Neck: no JVD Respiratory/Chest: no respiratory distress, no accessory muscle use Cardiovascular: no JVD Abdomen: + pertinent finding (abdominal incisions c/d/i; ecchymosis noted around incision sites. ) Extremities: normal inspection Neurologic/Psychiatric: alert, normal mood/affect, oriented x 3 Skin: normal color (Stephanie Falcon CRNP) Laboratory Results Last 24 Hours Test 03/05/17 07:59 03/05/17 09:12 03/05/17 12:10 03/05/17 12:25 Bedside Glucose 66 mg/dl 90 mg/dl 65 mg/dl 69 mg/dl Test 03/05/17 13:06 03/05/17 16:57 03/05/17 21:10 03/06/17 05:45 Bedside Glucose 157 mg/dl 137 mg/dl 131 mg/dl White Blood Count 11.66 K/uL Red Blood Count 3.98 M/uL Hemoglobin 12.4 g/dL Hematocrit 37.9 % Mean Corpuscular Volume 95.2 fL Mean Corpuscular Hemoglobin 31.2 pg Mean Corpuscular Hemoglobin Concent 32.7 g/dl Platelet Count 299 K/uL Mean Platelet Volume 9.7 fL Neutrophils (%) (Auto) 55.5 % Lymphocytes (%) (Auto) 33.0 % Monocytes (%) (Auto) 10.5 % Eosinophils (%) (Auto) 0.4 % Basophils (%) (Auto) 0.2 % Neutrophils # (Auto) 6.47 K/uL Lymphocytes # (Auto) 3.85 K/uL Monocytes # (Auto) 1.22 K/uL Eosinophils # (Auto) 0.05 K/uL Basophils # (Auto) 0.02 K/uL RDW Standard Deviation 45.4 fL RDW Coefficient of Variation 13.1 % Immature Granulocyte % (Auto) 0.4 % Immature Granulocyte # (Auto) 0.05 K/uL Sodium Level 137 mmol/L Potassium Level 3.9 mmol/L Chloride Level 103 mmol/L Carbon Dioxide Level 28 mmol/L Anion Gap 6.0 mmol/L Blood Urea Nitrogen 14 mg/dl Creatinine 1.20 mg/dl Est Creatinine Clear Calc Drug Dose 47.8 ml/min Estimated GFR () 52.3 Estimated GFR (Non- 45.1 BUN/Creatinine Ratio 11.4 Random Glucose 64 mg/dl Calcium Level 9.6 mg/dl (Stephanie Falcon CRNP) Assessment and Plan POD #2 s/p right HALN. Pt clinically stable. Continues to have some HTN, but BP improved. Will advance to a regular diabetic diet today. Encourage ambulation to hallway. Encourage use of IS. Will plan for d/c home after lunch if cleared by medical service from a HTN perspective. The pt will f/u with Dr. Alaniz as scheduled. Discharge planning: home (Stephanie Falcon CRNP) Pt seen, agree with above. No specific complaints, mild nausea with dinner last night, no emesis, + flatus , ambulatory. NAD S1S2 Good respiratory excursion Inc c/d/i with mild ecchymosis, nondistended, obese A/P 71 yo female POD#2 s/p R HALN. Doing well Anticipate DC home later today. (Michael Alaniz MD, Urology)
[2017-03-06 07:54] VITALS: BP 150/78; PULSE 82; TEMP 36.8; O2SAT 93
[2017-03-06 08:15] VITALS: O2SAT 93
[2017-03-06] MEDS: DOCUSATE SODIUM 100 MG CAP PO SCH (08:53)
[2017-03-06] MEDS: CARVEDILOL 25 MG TAB PO SCH (08:53)
[2017-03-06] MEDS: INSULIN ASPART 100 UNITS/ML 3 ML PEN SC SCH ×2 (08:58→13:10)
[2017-03-06] MEDS ORDERED: AMLODIPINE BESYLATE 5 MG TAB PO SCH (09:00)
[2017-03-06] MEDS ORDERED: INSULIN GLARGINE SOLOSTAR 100 UNITS/ML 3 ML PEN SC SCH ×3 (09:00→12:00)
[2017-03-06] MEDS: HEPARIN SOD 5000 UNIT/0.5 ML CARP SQ SCH (09:02)
[2017-03-06] MEDS ORDERED: NRV5 PO (09:08)
[2017-03-06] MEDS ORDERED: INSU1.2I SQ ×2 (09:08→11:09)
--- NOTE | 2017-03-06 09:21 | Pharmacy Progress Note ---
Glycemic: Assessment & Plan Date of Service Mar 06, 2017. Assessment & Plan * Past 24hrs: * Pt received 44 units of insulin (35 units of basal + 9 units of prandial) * Pt with frequent lows indicating dosing too high with current PO intake * A1c = 8.5% and patient reports frequent high and low BSGs. * Outpatient dosing is: Toujeo 44 units SQ BID --> suspect that this is providing both basal and prandial needs and that when BSG is low dose is held which leads to rebound hyperglycemia. Item Value Date Time Random Glucose 95 mg/dl 03/05/17 0523 Bedside Glucose 66 mg/dl *L 03/05/17 0759 Bedside Glucose 90 mg/dl 03/05/17 0912 Bedside Glucose 65 mg/dl *L 03/05/17 1210 Bedside Glucose 69 mg/dl *L 03/05/17 1225 Bedside Glucose 157 mg/dl H 03/05/17 1306 Bedside Glucose 137 mg/dl H 03/05/17 1657 Bedside Glucose 131 mg/dl H 03/05/17 2110 Random Glucose 64 mg/dl L 03/06/17 0545 Discharge Planning: Discussed outpatient regimen with diabetes educators, hospitalist, and patient. * Recommend once daily basal/long acting insulin titration. * May consider decreasing or discontinue the Metformin d/t renal surgery and decreasing CrCl. Long Acting Insulin Titration o Toujeo (Glargine) Start taking Toujeo 25 units SQ daily in the morning * Your fasting blood glucose Target Range is 100 - 140 mg/dl. * If your fasting blood sugars in the morning are mostly higher than your target range (above 140 mg/dl), then increase your Touejo dose by 3 units every 3 days. * If your fasting blood sugars in the morning are mostly lower than your target range (below 100mg/dl), then decrease your Toujeo dose by 3 units every 3 days. * Your Max Dose is to be determined by PCP. * Long acting insulin should be taken at the same time every day, please take your insulin in the morning * When changing insulin dosing, you should test your blood sugar four times each day. Please keep a record of your blood sugar readings. * When first awake before eating breakfast * Before lunch * Before dinner * Bedtime
--- NOTE | 2017-03-06 09:27 | Hospitalist Progress Note ---
Hospitalist Progress Note Date of Service Mar 06, 2017. Subjective Pt evaluation today including: conversation w/ patient BPs improved but still high. Pt denies CP or SOB, no LEIVA. ABd pain is controlled. Still a little nauseated but ate half her breakfast. Is to be discharged today later if BPs ok. Has had persistent hypoglycemia likely from less po intake than usual at home. She reports she never skips doses of Toujeo at home and takes 44 units bid. Sometimes she has lows of 64 at home. A1C is high here. Discussed case with Urology [employer] and with Pharmacy regarding her hypoglycemia. All Other Systems: Reviewed and Negative Objective Vital Signs Date Time Temp Pulse Resp B/P (MAP) Pulse Ox O2 Delivery O2 Flow Rate FiO2 03/06/17 08:15 93 Room Air 03/06/17 07:54 36.8 82 19 150/78 (102) 93 Room Air 03/05/17 23:20 Room Air 03/05/17 23:10 37.0 89 16 154/78 (103) 92 Room Air 03/05/17 22:19 147/72 (97) 03/05/17 20:24 79 207/80 (122) 03/05/17 15:30 Room Air 03/05/17 15:00 36.8 74 18 173/73 (106) 93 Room Air 03/05/17 12:00 72 95 03/05/17 11:39 36.6 71 18 149/63 (91) 94 Room Air 03/05/17 10:33 98 Nasal Cannula 1.0 Physical Exam General Appearance: WD/WN, no apparent distress (sitting in chair), + obese Eyes: normal inspection, sclerae normal ENT: hearing grossly normal Neck: trachea midline Respiratory/Chest: lungs clear, normal breath sounds, no respiratory distress, no accessory muscle use Cardiovascular: regular rate, rhythm, no edema, no gallop, no murmur Abdomen: normal bowel sounds, soft, + tenderness (mild around incisional sites without guarding) Extremities: normal inspection, no pedal edema, no calf tenderness Neurologic/Psychiatric: alert, normal mood/affect, oriented x 3 Skin: normal color, warm/dry, no rash Laboratory Results Last 24 Hours Test 03/05/17 12:10 03/05/17 12:25 03/05/17 13:06 03/05/17 16:57 Bedside Glucose 65 mg/dl 69 mg/dl 157 mg/dl 137 mg/dl Test 03/05/17 21:10 03/06/17 05:45 Bedside Glucose 131 mg/dl White Blood Count 11.66 K/uL Red Blood Count 3.98 M/uL Hemoglobin 12.4 g/dL Hematocrit 37.9 % Mean Corpuscular Volume 95.2 fL Mean Corpuscular Hemoglobin 31.2 pg Mean Corpuscular Hemoglobin Concent 32.7 g/dl Platelet Count 299 K/uL Mean Platelet Volume 9.7 fL Neutrophils (%) (Auto) 55.5 % Lymphocytes (%) (Auto) 33.0 % Monocytes (%) (Auto) 10.5 % Eosinophils (%) (Auto) 0.4 % Basophils (%) (Auto) 0.2 % Neutrophils # (Auto) 6.47 K/uL Lymphocytes # (Auto) 3.85 K/uL Monocytes # (Auto) 1.22 K/uL Eosinophils # (Auto) 0.05 K/uL Basophils # (Auto) 0.02 K/uL RDW Standard Deviation 45.4 fL RDW Coefficient of Variation 13.1 % Immature Granulocyte % (Auto) 0.4 % Immature Granulocyte # (Auto) 0.05 K/uL Sodium Level 137 mmol/L Potassium Level 3.9 mmol/L Chloride Level 103 mmol/L Carbon Dioxide Level 28 mmol/L Anion Gap 6.0 mmol/L Blood Urea Nitrogen 14 mg/dl Creatinine 1.20 mg/dl Est Creatinine Clear Calc Drug Dose 47.8 ml/min Estimated GFR () 52.3 Estimated GFR (Non- 45.1 BUN/Creatinine Ratio 11.4 Random Glucose 64 mg/dl Calcium Level 9.6 mg/dl Assessment and Plan Pt is a 71 yo female with a h/o HTN, hypothyroidism, Vit D deficiency, DMII, obesity, and right renal masses, here s/p Right nephrectomy. Medical consultation placed for elevated BPs. Essential HTN with accelerated HTN-->missed her dose of Coreg the AM of surgery , but was restarted, BPs were improved, then increased again. Could be secondary to pain, possibly nephrectomy? -IV hydralazine prn-given once last evening, now BPs in 150s systolic range -continue COreg 25mg po bid -add amlodipine 5mg daily today and continue upon discharge -pain control -f/u with PCP DMII: last A1C 8.5% here, uncontrolled, but with hypoglycemia despite significantly lowered dose from home regimen. Likely secondary to less po intake here, but question technique for injecting at home? 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
[2017-03-06 10:34] VITALS: BP 150/78; PULSE 82; TEMP 36.8; O2SAT 93
[2017-03-06 11:17] VITALS: Ht 167.6 cm; Wt 89.7 kg
[2017-03-06 11:30] VITALS: BP_SYST 185; BP_DIAS 78; BP_DIAS 79; PULSE 78; TEMP 36.6; O2SAT 94
[2017-03-06 12:09] VITALS: BP 160/71; PULSE 86; O2SAT 92
[2017-03-06] MEDS: ONDANSETRON INJ 2 MG/ML 2 ML VIAL IV PRN (13:11)
[2017-03-06] MEDS ORDERED: ONDA4TAB10 SL (13:18)
== END 2017-03-06 14:09 | disposition home or self-care (01) | DRG 661 ==
LOC: C.ACU 04:59 → C.MSW 07:00 → ENRESERV 10:30
PROVIDERS: ADMIT Urology; ATTEND Urology
PROC: 0TT04ZZ Resection of Right Kidney, Percutaneous Endoscopic Approach (ICD-10-PCS; principal; 2017-03-04 07:15)
DX: N28.89 Other specified disorders of kidney and ureter (principal); I10 Essential (primary) hypertension; E03.9 Hypothyroidism, unspecified; E55.9 Vitamin D deficiency, unspecified; E11.65 Type 2 diabetes mellitus with hyperglycemia; E66.9 Obesity, unspecified; Z79.84 Long term (current) use of oral hypoglycemic drugs; Z79.899 Other long term (current) drug therapy; Z68.31 Body mass index [BMI] 31.0-31.9, adult